=== PATIENT | female | born 1960 | race Caucasian/White ===

== ENCOUNTER 2019-01-26 15:34 | Emergency (ER) | payer MEDICAID ==
[~2019-01-26] VITALS: Ht 162.6 cm; Wt 59.0 kg
[2019-01-26] MEDS ORDERED: GABA-339 PO ×2 (18:26)
[2019-01-26] MEDS ORDERED: OXYB15TA12 PO (18:26)
[2019-01-26] MEDS ORDERED: METH-532 PO (18:26)
[2019-01-26] MEDS ORDERED: HYDR2TAB58 PO (18:26)
[2019-01-26] MEDS ORDERED: ETAN25IN3 SC (18:27)
[2019-01-26] MEDS ORDERED: THIA100T10 PO (18:37)
[2019-01-26] MEDS ORDERED: CHOL20007 PO (18:37)
[2019-01-26] MEDS ORDERED: FOLI1TAB6 PO (18:37)
[2019-01-26] MEDS ORDERED: LACT10SO66 PO (18:37)
[2019-01-26] MEDS ORDERED: CALC667C PO (18:37)
[2019-01-26] MEDS ORDERED: PROM25TA5 PO (18:37)
[2019-01-26] MEDS ORDERED: MODA100T29 PO (18:37)
[2019-01-26] MEDS ORDERED: MULTTAB99 PO (18:37)
[2019-01-26] MEDS ORDERED: TRAZ150T79 PO (18:37)
[2019-01-26] MEDS ORDERED: ONDANSETRON HCL 4 MG/2 ML VIAL IV ONE (18:45)
[2019-01-26] MEDS ORDERED: HYDROmorphone HCL 2 MG/ML VL IV ONE ×2 (18:45→20:45)
[2019-01-26 19:50] LABS: INR 1.1 (0.9-1.15); Partial Thromboplastin Time 29.6 sec (23.64-32.05)
[2019-01-26 19:51] LABS: Albumin 1.8 g/dL (3.4-5.0); Anion Gap 9 (5-15); Blood Urea Nitrogen 6 mg/dL (7-18); Carbon Dioxide 27 mmol/L (21-32); Chloride 104 mmol/L (98-107); Glucose 104 mg/dL (74-106); Magnesium 1.8 mg/dL (1.6-2.6); Sodium 140 mmol/L (136-145)
[2019-01-26 19:53] LABS: Alanine Aminotransferase 16 U/L (13-56); Aspartate Aminotransferase 37 U/L (15-37); BUN/Creatinine Ratio 11.8; GFR African American 159 mL/min; GFR Non-African American 131 mL/min
[2019-01-26 19:59] LABS: Alkaline Phosphatase 96 U/L (45-117); Bilirubin, Total 0.4 mg/dL (0.2-1.0); Total Protein 5.3 g/dL (6.4-8.2)
[2019-01-26 20:17] LABS: Basophils # (auto) 0 uL; Basophils % (auto) 0.4 % (0.0-2.0); Eosinophils # (auto) 0.2 uL; Eosinophils % (auto) 2.5 % (0.0-7.0); Hematocrit 37.8 % (36.0-46.0); Hemoglobin 11.8 g/dL (12.2-16.2); Lymphocytes # (auto) 2.6 uL; Lymphocytes % (auto) 43.3 % (10.0-50.0); Mean Corpuscular Hemoglobin 32.4 pg (28.0-32.0); Mean Corpuscular Hgb Conc. 31.3 g/dL (32.0-36.0); Mean Corpuscular Volume 103.7 fL (80.0-100.0); Monocytes % (auto) 15.9 % (0.0-12.0); Neutrophils # (auto) 2.3 uL; Neutrophils % (auto) 37.9 % (37.0-80.0); Nucleated Red Blood Cells % 0.1 %; Platelet Count (auto) 241 10^3/uL (140-450); Red Blood Cells 3.65 10^6/uL (4.0-5.20); Red Cell Distribution Width 14.5 % (11.8-14.3); White Blood Cell 6.1 10^3/uL (4.4-10.8)
[2019-01-26 20:28] LABS: Potassium 2.9 mmol/L (3.5-5.1)
[2019-01-26] MEDS ORDERED: POTASSIUM CHL 20MEQ/100ML 100 ML IV ONE (20:45)
[2019-01-26 21:40] LABS: Urine Bacteria FEW /hpf (None Seen); Urine Blood Negative /uL (Negative); Urine Mucus FEW (None Seen); Urine Specific Gravity 1.007 (1.001-1.035); Urine WBC 45 /hpf (0 - 5)
[2019-01-26] MEDS ORDERED: SODIUM CHLORIDE 0.9% 500 ML IV ONE (22:00)
[2019-01-26] MEDS ORDERED: POTASSIUM CHL 20 Meq TABLET PO ONE (23:45)
[2019-01-27 03:30] VITALS: BP 83/56
== END 2019-01-27 04:22 | disposition home or self-care (01) ==
LOC: EDBD 15:34 → ER 15:37
DX: E87.6 Hypokalemia (principal); M87.052 Idiopathic aseptic necrosis of left femur; M87.051 Idiopathic aseptic necrosis of right femur; G89.4 Chronic pain syndrome; F41.9 Anxiety disorder, unspecified; M19.90 Unspecified osteoarthritis, unspecified site; K21.9 Gastro-esophageal reflux disease without esophagitis; M25.512 Pain in left shoulder; Z87.11 Personal history of peptic ulcer disease; Z87.440 Personal history of urinary (tract) infections; Z79.891 Long term (current) use of opiate analgesic; Z79.899 Other long term (current) drug therapy; Z88.2 Allergy status to sulfonamides
CPT/HCPCS: 36415; 71045; 73030; 80053; 81001; 83735; 83880; 84443; 84484; 85025; 85379; 85610; 85730; 93005; 94761; 96365; 96366; 96375; 96376; 99284; J1170; J2405; J3480; J7030; J7040

== ENCOUNTER 2019-07-27 18:21 | Emergency (ER) | payer MEDICAID ==
[~2019-07-27] VITALS: Ht 160 cm; Wt 59.0 kg
[~2019-07-27 18:21] MED LIST: CALC667C PO; CHOL20007 PO; ETAN25IN3 SC; FOLI1TAB6 PO; GABA-339 PO; HYDR2TAB58 PO; LACT10SO70 PO; METH-532 PO; MODA100T29 PO; MULTTAB99 PO; OXYB15TA12 PO; PROM25TA5 PO; THIA100T10 PO; TRAZ150T79 PO
[2019-07-27] MEDS ORDERED: MORPHINE SULF INJ 2 MG/ML SYRINGE 1ML IV ONE (19:15)
[2019-07-27] MEDS ORDERED: ONDANSETRON HCL 4 MG/2 ML VIAL IV ONE (19:15)
[2019-07-27] MEDS ORDERED: SODIUM CHLORIDE 0.9% 1,000 ML IV ONE (19:15)
[2019-07-27 19:25] LABS: Basophils # (auto) 0.1 uL; Hemoglobin 10.7 g/dL (12.2-16.2); Lymphocytes # (auto) 2.9 uL; Nucleated Red Blood Cells % 0.1 %; Red Cell Distribution Width 16.1 % (11.8-14.3)
[2019-07-27 19:27] LABS: Basophils % (auto) 0.9 % (0.0-2.0); Eosinophils % (auto) 11.6 % (0.0-7.0); Hematocrit 33.1 % (36.0-46.0); Lymphocytes % (auto) 35.7 % (10.0-50.0); Mean Corpuscular Hemoglobin 27.4 pg (28.0-32.0); Mean Corpuscular Hgb Conc. 32.4 g/dL (32.0-36.0); Mean Corpuscular Volume 84.5 fL (80.0-100.0); Monocytes # (auto) 1.3 uL; Monocytes % (auto) 15.4 % (0.0-12.0); Neutrophils % (auto) 36.4 % (37.0-80.0); Platelet Count (auto) 558 10^3/uL (140-450); Red Blood Cells 3.92 10^6/uL (4.0-5.20); White Blood Cell 8.2 10^3/uL (4.4-10.8)
[2019-07-27] MEDS ORDERED: HYDROmorphone HCL 2 MG/ML VL IV ONE ×2 (19:30→23:30)
[2019-07-27 19:52] LABS: Albumin 3.5 g/dL (3.4-5.0); Calcium 8.9 mg/dL (8.5-10.1); Potassium 3.9 mmol/L (3.5-5.1)
[2019-07-27 19:58] LABS: BUN/Creatinine Ratio 7.9; Bilirubin, Total 0.4 mg/dL (0.2-1.0)
[2019-07-27] MEDS ORDERED: diphenhdrAMINE HCL 50 MG/1 ML VL IV ONE (23:30)
[2019-07-28 00:03] LABS: Urine Bacteria FEW /hpf (None Seen); Urine Blood Negative /uL (Negative); Urine Hyaline Cast FEW /lpf (0 - 2); Urine Specific Gravity 1.011 (1.001-1.035); Urine WBC 48 /hpf (0 - 5)
[2019-07-28 00:14] LABS: Amphetamine Screen, Urine NEGATIVE (NEGATIVE); Barbiturate Scree,Urine NEGATIVE (NEGATIVE); Benzodiazephine Screen, Urine POSITIVE (NEGATIVE); Cannabinoid Screen, Urine NEGATIVE (NEGATIVE); Cocaine Screen, Urine NEGATIVE (NEGATIVE); Phencyclidine Screen, Urine NEGATIVE (NEGATIVE)
[2019-07-28 00:26] LABS: Opiate Scree,Urine POSITIVE (NEGATIVE)
[2019-07-28] MEDS ORDERED: cefTRIAXone 1GM/50ML D5W 50 ML IV ONE (02:15)
[2019-07-28 07:00] VITALS: BP 125/62
[2019-07-28] MEDS ORDERED: ONDANSETRON HCL 4 MG/2 ML VIAL ONE (07:14)
[2019-07-28] MEDS ORDERED: HYDROmorphone HCL 2 MG/ML VL IV ONE (07:15)
== END 2019-07-28 07:18 | disposition short-term general hospital (02) ==
LOC: EDBD 18:21 → EDUNIT# 18:21 → ER 18:23
DX: N39.0 Urinary tract infection, site not specified (principal); K56.7 Ileus, unspecified; K56.600 Partial intestinal obstruction, unspecified as to cause; F19.90 Other psychoactive substance use, unspecified, uncomplicated; K21.9 Gastro-esophageal reflux disease without esophagitis; Z88.8 Allergy status to other drugs, medicaments and biological substances; Z88.2 Allergy status to sulfonamides; Z79.899 Other long term (current) drug therapy
CPT/HCPCS: 36415; 71045; 74176; 80053; 80307; 81001; 83690; 85025; 93005; 96361; 96365; 96375; 96376; 99285; J0696; J1170; J1200; J2405; J7030

== ENCOUNTER 2020-11-26 20:20 | Emergency (ER) | payer MEDICAID ==
[~2020-11-26] VITALS: Ht 160 cm; Wt 49.9 kg
[~2020-11-26 20:20] MED LIST changes: -MODA100T29 PO; -TRAZ150T79 PO; +TRAZ1TAB12 PO; +[UNRECOGNIZED DRUG - CODE] PO
[2020-11-26 20:24] VITALS: BP 112/78
[2020-11-26 22:26] LABS: Basophils # (auto) 0 10 ^3/uL (0-0.2); Basophils % (auto) 0.5 % (0.0-2.0); Eosinophils # (auto) 0.2 10 ^3/uL (0-0.8); Eosinophils % (auto) 2.3 % (0.0-7.0); Hematocrit 35.6 % (36.0-46.0); Hemoglobin 11.7 g/dL (12.2-16.2); Lymphocytes # (auto) 2.5 10 ^3/uL (0.4-5.4); Lymphocytes % (auto) 33.6 % (10.0-50.0); Mean Corpuscular Hgb Conc. 32.8 g/dL (32.0-36.0); Mean Corpuscular Volume 97.6 fL (80.0-100.0); Monocytes # (auto) 0.8 10 ^3/uL (0-1.3); Monocytes % (auto) 11.5 % (0.0-12.0); Neutrophils # (auto) 3.8 10 ^3/uL (1.6-8.6); Neutrophils % (auto) 52.1 % (37.0-80.0); Nucleated Red Blood Cells % 0.2 %; Platelet Count (auto) 317 10^3/uL (140-450); Red Blood Cells 3.65 10^6/uL (4.0-5.20); Red Cell Distribution Width 15.1 % (11.8-14.3); White Blood Cell 7.3 10^3/uL (4.4-10.8)
[2020-11-26 22:38] LABS: INR 1.25 (0.9-1.15); Partial Thromboplastin Time 29.6 sec (23.0-31.2)
[2020-11-26 22:43] LABS: Albumin 2.2 g/dL (3.4-5.0); Anion Gap 7 (5-15); BUN/Creatinine Ratio 15.9; Blood Urea Nitrogen 7 mg/dL (7-18); Calcium 7.8 mg/dL (8.5-10.1); Carbon Dioxide 28 mmol/L (21-32); Chloride 100 mmol/L (98-107); GFR African American 187 mL/min; GFR Non-African American 155 mL/min; Glucose 94 mg/dL (74-106); Potassium 3.1 mmol/L (3.5-5.1); Sodium 135 mmol/L (136-145)
[2020-11-26 22:58] LABS: Alanine Aminotransferase 18 U/L (13-56); Alkaline Phosphatase 123 U/L (45-117); Aspartate Aminotransferase 36 U/L (15-37); Bilirubin, Total 0.4 mg/dL (0.2-1.0)
[2020-11-27] MEDS ORDERED: POTASSIUM EFFERVESENT TAB 25 MEQ PO ONE
== END 2020-11-27 01:32 | disposition left against medical advice (07) ==
LOC: ER 20:25
DX: F41.9 Anxiety disorder, unspecified (principal); F11.20 Opioid dependence, uncomplicated; R07.9 Chest pain, unspecified; M06.9 Rheumatoid arthritis, unspecified; K21.9 Gastro-esophageal reflux disease without esophagitis; Z87.440 Personal history of urinary (tract) infections
CPT/HCPCS: 36415; 71045; 80053; 82728; 83605; 83735; 84484; 85025; 85610; 85730

== ENCOUNTER 2020-12-27 12:53 | Emergency (ER) | payer MEDICAID ==
[~2020-12-27] VITALS: Ht 157.5 cm; Wt 52.2 kg
[2020-12-27] MEDS ORDERED: PANTOPRAZOLE 40 MG/10 ML VIAL INJ IV STA (13:21)
[2020-12-27] MEDS ORDERED: ONDANSETRON HCL 4 MG/2 ML VIAL IV ONE (13:30)
[2020-12-27] MEDS ORDERED: MORPHINE SULFATE 4 MG/ML SYR/VIAL IV ONE (13:30)
[2020-12-27] MEDS ORDERED: SODIUM CHLORIDE 0.9% 500 ML IVB ONE (13:30)
[2020-12-27 14:40] LABS: Basophils # (auto) 0 10 ^3/uL (0-0.2); Basophils % (auto) 0.7 % (0.0-2.0); Eosinophils # (auto) 0.1 10 ^3/uL (0-0.8); Eosinophils % (auto) 1.5 % (0.0-7.0); Hematocrit 34.4 % (36.0-46.0); Hemoglobin 11.4 g/dL (12.2-16.2); Lymphocytes # (auto) 2.4 10 ^3/uL (0.4-5.4); Lymphocytes % (auto) 40.8 % (10.0-50.0); Mean Corpuscular Hemoglobin 31.9 pg (28.0-32.0); Mean Corpuscular Hgb Conc. 33.2 g/dL (32.0-36.0); Mean Corpuscular Volume 96.1 fL (80.0-100.0); Monocytes # (auto) 0.8 10 ^3/uL (0-1.3); Monocytes % (auto) 14.2 % (0.0-12.0); Neutrophils # (auto) 2.5 10 ^3/uL (1.6-8.6); Neutrophils % (auto) 42.8 % (37.0-80.0); Nucleated Red Blood Cells % 0.1 %; Platelet Count (auto) 307 10^3/uL (140-450); Red Blood Cells 3.57 10^6/uL (4.0-5.20); Red Cell Distribution Width 13.6 % (11.8-14.3); White Blood Cell 5.9 10^3/uL (4.4-10.8)
[2020-12-27 14:53] LABS: Albumin 1.9 g/dL (3.4-5.0); Calcium 7.1 mg/dL (8.5-10.1)
[2020-12-27 14:58] LABS: BUN/Creatinine Ratio 9.8; Bilirubin, Total 0.2 mg/dL (0.2-1.0); Total Protein 5.1 g/dL (6.4-8.2)
[2020-12-27 15:46] LABS: Urine Bacteria NONE SEEN /hpf (None Seen); Urine Blood Negative /uL (Negative); Urine Hyaline Cast FEW /lpf (0 - 2); Urine Specific Gravity 1.008 (1.001-1.035); Urine WBC 1 /hpf (0 - 5)
[2020-12-27 15:53] VITALS: BP 135/104
== END 2020-12-27 16:53 | disposition home or self-care (01) ==
LOC: EDBD 12:53 → ER 12:53 → EDSEX 12:53 → ER 16:53
DX: M06.9 Rheumatoid arthritis, unspecified (principal); R53.1 Weakness; K21.9 Gastro-esophageal reflux disease without esophagitis; E03.9 Hypothyroidism, unspecified; Z90.89 Acquired absence of other organs; Z79.899 Other long term (current) drug therapy; Z88.2 Allergy status to sulfonamides; Z88.8 Allergy status to other drugs, medicaments and biological substances
CPT/HCPCS: 36415; 76705; 80053; 81001; 82150; 83690; 85025; 93005; 96361; 96374; 96375; 99285; C9113; J2270; J2405; J7040